=== PATIENT | male | born 1990 | race Caucasian/White ===

== ENCOUNTER 2016-10-07 07:33 | Observation (INO) | payer OTHER ==
--- NOTE | 2016-10-06 19:49 | OPPN ---
Date/Time of Note Date/Time of Note DATE: 10/06/16 TIME: 19:44 Anesthesia Eval and Record Evaluation Age 26 Sex male NPO: 8 hrs Preoperative diagnosis Left distal tibial pilon fracture Planned procedure ORIF Left distal tibial pilon fracture Surgery & Anesthesia Issues No known issue Meds Anticoagulation: No Beta Jose Luis within 24 hr: No Reason beta jose luis not given: Pt not on beta blockers Reported Medications Oxycodone HCl/Acetaminophen (Percocet 10-325 mg Tablet) 1 Each Tablet, 1 EACH PO Q4 Y for PAIN LEVEL 1-5, TAB 10/07/16 Allergies Coded Allergies: No Known Allergy (Unverified , 10/07/16) Labs/Studies Reviewed by anesthesiologist Pre-procedure Exam Airway and Mallampati score: Adequate mouth opening, Adequate thyromental dist , II Mallampati Teeth: Normal Lung: Normal ASA Physical Status ASA physical status: 1 Planned Anesthetic General/MAC: ETT Nerve block: Sciatic (left), Other (left saphenous block) Paulie Mcintyre M.D. Oct 06, 2016 19:49
[2016-10-07] VITALS (24 sets, daily range): BP systolic 107–144; BP diastolic 47–86; PULSE 64–106; RESP 16–39; Ht 170.2 cm; Wt 77.2 kg
[~2016-10-07] VITALS: Ht 170.2 cm; Wt 77.2 kg
[~2016-10-07 07:33] MED LIST: CEFAZOLIN 1 GM INJ ONE
[2016-10-07] MEDS ORDERED: OXYC-209 PO (07:52)
[2016-10-07] MEDS ORDERED: HYDROCODONE/APAP (10/325) TAB PO ONE (08:00)
[2016-10-07] MEDS ORDERED: BUPIVACAINE 0.5% (SDV) 30 ML INJ ONE (08:37)
[2016-10-07] MEDS ORDERED: POLYMYXIN/BACITRACIN 1L IRRIG ONE (08:37)
[2016-10-07] MEDS ORDERED: PROPOFOL 20 ML ONE (09:55)
[2016-10-07] MEDS ORDERED: ROPIVACAINE 0.5 % 30 ML VIAL ONE (09:55)
[2016-10-07] MEDS ORDERED: ROCURONIUM 50 MG INJ ONE (09:55)
[2016-10-07] MEDS ORDERED: ONDANSETRON 4 MG INJ ONE (09:55)
[2016-10-07] MEDS ORDERED: MIDAZOLAM 1 MG/ML 2 ML INJ ONE (09:55)
[2016-10-07] MEDS ORDERED: DEXAMETHASONE 4 MG/ML 1 ML INJ ONE (09:56)
[2016-10-07] MEDS ORDERED: CEFAZOLIN 1 GM INJ ONE (10:46)
[2016-10-07] MEDS ORDERED: FENTAnyl 50 MCG/ML VIAL ONE ×2 (11:48→13:02)
[2016-10-07] MEDS ORDERED: FENTAnyl 50 MCG/ML VIAL IV PRN ×3 (12:30)
[2016-10-07] MEDS ORDERED: HYDROmorphONE (0.2 MG/ML) 10ML SYG IV PRN ×3 (12:30)
[2016-10-07] MEDS ORDERED: LABETALOL HCL 20MG INJ IV PRN (12:30)
[2016-10-07] MEDS ORDERED: EPHEDrine SULFATE 50 MG/5 ML SYG IV PRN (12:30)
[2016-10-07] MEDS ORDERED: MIDAZOLAM 1 MG/ML 2 ML INJ IV PRN (12:30)
[2016-10-07] MEDS ORDERED: MEPERIDINE 25 MG INJ IV PRN (12:30)
[2016-10-07] MEDS ORDERED: ONDANSETRON 4 MG INJ IV PRN ×2 (12:30→15:00)
[2016-10-07] MEDS ORDERED: DIPHENHYDRAMINE 50 MG INJ IV PRN (12:30)
[2016-10-07] MEDS ORDERED: TRIMETHOBENZAMIDE 100 MG/ML VIAL IM PRN (12:30)
[2016-10-07] MEDS ORDERED: hydrALAzine 20 MG INJ IV PRN (12:30)
--- NOTE | 2016-10-07 13:47 | OPPN ---
Date/Time of Note Date/Time of Note DATE: 10/07/16 TIME: 13:40 Post-Anesthesia Notes Post-Anesthesia Note Activity: WNL Respiratory function: WNL Cardiovascular function: WNL Mental status: Baseline Pain reasonably controlled: Yes Hydration appropriate: Yes Nausea/Vomiting absent: Yes Paulie Mcintyre M.D. Oct 07, 2016 13:47
[2016-10-07] MEDS ORDERED: BACITRACIN/POLYMYXIN 28.35 GM OINT TOP ONE (14:15)
--- NOTE | 2016-10-07 14:44 | RADRPT ---
PROCEDURE: Intraoperative imaging of the left ankle with fluoroscopy. CLINICAL INDICATION: Left ankle pain. Fracture. Intraoperative. TECHNIQUE: 28 images of the left ankle were obtained in the operating room with an image intensifi er. No radiologist was in attendance. 2.0 minutes of fluoroscopy time was used. COMPARISON: No prior study is available for comparison. FINDINGS: Images demonstrate open reduction and internal fixation of the distal left tibia with a plate and mu ltiple screws. IMPRESSION: 1. Intraoperative imaging of the left ankle. RPTAT: QQ .Fredy Del Cid MD, MD Date Time Electronically viewed and signed by .Fredy Del Cid MD, MD on 10/07/2016 14:44 .R/
[2016-10-07] MEDS ORDERED: DIPHENHYDRAMINE 25 MG CAP PO PRN (15:00)
[2016-10-07] MEDS ORDERED: OXYCODONE/ACETAMINOPHEN (5/325) TAB PO PRN (15:00)
[2016-10-07] MEDS ORDERED: CEFAZOLIN 1 GM INJ IV SCH (15:00)
[2016-10-07] MEDS ORDERED: morphine 10 MG INJ IV PRN (15:00)
[2016-10-07] MEDS: morphine 1 MG/ML 30 ML (PCA) IV SCH (15:20)
[2016-10-07] MEDS: CEFAZOLIN 1 GM/50 ML (PMX) 50 ML IVPB SCH (21:57)
[2016-10-08] MEDS: CEFAZOLIN 1 GM/50 ML (PMX) 50 ML IVPB SCH ×2 (05:44→14:17)
[2016-10-08] MEDS: morphine 1 MG/ML 30 ML (PCA) IV SCH ×2 (06:33→12:48)
[2016-10-08 07:31] VITALS: BP 121/57; RESP 19
[2016-10-08 07:34] VITALS: BP 133/88; RESP 19
[2016-10-08] MEDS: OXYCODONE/ACETAMINOPHEN (5/325) TAB PO PRN ×2 (11:30→15:43)
[2016-10-08] MEDS ORDERED: HYDROmorphONE 1 MG/ML SYG IV PRN ×2 (14:30)
[2016-10-08] MEDS ORDERED: GABAPENTIN 100 MG CAP PO SCH ×2 (14:36→21:00)
[2016-10-08] MEDS ORDERED: RIVAROXABAN 10 MG TABLET PO SCH (17:55)
--- NOTE | 2016-10-08 18:10 | PN ---
Date/Time of Note Date/Time of Note DATE: 10/08/16 TIME: 18:06 Assessment/Plan Lines/Catheters IV Catheter Type (from Nrsg): Peripheral IV Assessment/Plan Assessment/Plan POD# 1 s/p Left distal tibial Pilon ORIF - NWB to the LLE - Xarelto - Percocet, Neurotin po - DC home today E Errol HINES Subjective 24 Hr Interval Summary Pain is much better controlled this evening. Was very nauseous last night, which has resolved. No f/c/n/v Constitutional: no complaints Feeding: advancing diet Pain Control: mild Exam/Review of Systems Vital Signs Vitals Vital Signs Date Time Temp Pulse Resp B/P Pulse Ox O2 Delivery O2 Flow Rate FiO2 10/08/16 09:00 20 10/08/16 07:34 97.0 81 133/88 99 10/07/16 23:55 Room Air 10/07/16 15:30 2.0 Intake and Output 10/07/16 10/07/16 10/08/16 15:00 23:00 07:00 Intake Total 2000 ml 1040 ml 450 ml Output Total 50 ml 850 ml Balance 1950 ml 1040 ml -400 ml Exam Constitutional: alert, oriented, well developed Musculoskeletal: other (LLE/splint intact, toes wiggle, cr brisk, silt m/l/d/p/ fdws) BARBARA PAULINO MD Oct 08, 2016 18:10
--- NOTE | 2016-10-08 18:11 | PDOCDIS ---
Discharge Instructions CONDITION Patient Condition: Good HOME CARE INSTRUCTIONS: Special Diet: regular diet ACTIVITY: Activity Restrictions: Do not Drive Do not operate Machinery Do not operate Power Tool Keep Limb Elevated No Weight Bearing BARBARA PAULINO MD Oct 08, 2016 18:11
--- NOTE | 2016-10-08 18:13 | DS ---
Date/Time of Note Date/Time of Note DATE: 10/08/16 TIME: 18:11 Discharge Summary Admission/Discharge Info Admit Date/Time Oct 07, 2016 at 14:34 Discharge Date/Time 10/08/16 Final Diagnosis Left distal tibia pilon fracture Patient Condition: Good Procedures ORIF Left Distal Tibial Pilon Fracture Hospital Course Patient was admitted post op for pain control. He has regained better control of his pain today. he is NVID to the exposed toes. NWB to the E Home Meds Reported Medications Oxycodone HCl/Acetaminophen (Percocet 10-325 mg Tablet) 1 Each Tablet, 1 EACH PO Q4 Y for PAIN LEVEL 1-5, TAB 10/07/16 Follow-up Plan [address] Aurelio PAULINO,AURELIO Patton MD Oct 08, 2016 18:13
--- NOTE | 2016-10-09 01:36 | OPR ---
DATE OF OPERATION: 10/07/2016 PREOPERATIVE DIAGNOSIS: Left distal tibial pilon fracture. POSTOPERATIVE DIAGNOSES: Left distal tibial pilon fracture. OPERATION PERFORMED: Open reduction internal fixation of left distal tibial pilon fracture. SURGEON: Aurelio Norton MD NON DESTRUCTIVE TESTING SUPERVISOR: PRIYA Boateng. ANESTHESIA: General with regional block anesthesia. ANESTHESIOLOGIST: Dr. Paulie Mcintyre. TOURNIQUET TIME: 128 minutes at 250 mmHg. IMPLANTS: Arthrex distal tibial anterolateral tibial plate. PATHOLOGY: None. INDICATIONS: The patient is a young man who sustained a distal tibial pilon fracture falling off a curb and twisting his ankle. A CT scan showed mild displacement of an pauci-articular distal tibial pilon fracture. Given the displacement, the patient was indicated for surgery. RISK NOTE: The patient was explained the risks and benefits of the surgery in the patient's poarch language including, but not limited to infection, bleeding , loss of limb, loss of life, DVT, need for future surgery, risk of injury to blood vessels, nerves, ligaments or tendons. Patient acknowledges these risks and signed the surgical consent form. OPERATIVE NOTE: The patient had the correct operative extremity marked in the preoperative holding area, confirmed with both marking pen and with consent and with patient. Patient was then brought back in the operative theater, placed supine on operating table, given preoperative regional anesthesia, preoperative antibiotics. The patient had a nonsterile tourniquet placed on the operative extremity and patient was then prepped and draped in the normal sterile fashion. A timeout was taken and all parties in the room agreed it was correct patient, correct extremity and correct procedure. Tourniquet was brought up to 250 mmHg. Incision was made in the typical anterolateral approach with care to avoid any injury to the neurovascular structures. The incision was brought down to the distal tibia and the fracture was then reduced and 2 lag screws were placed while the fracture was held in position from the posteromedially anterolateral position. In typical lag type compression an anterolateral Arthrex plate was then placed over the distal tibia with screw placed proximally followed by multiple locking screws placed distally. The fracture was shown to be well reduced in the AP, lateral and oblique positions with excellent fixation and the articular surface well reduced. After the patient was shown to be adequately reduced in length, alignment and rotation and excellent articular alignment was achieved, the wounds were irrigated thoroughly and closed with 0 Vicryl, followed by 2-0 Vicryl followed by 3-0 Monocryl and 3-0 nylon in vertical mattress fashion. The wounds were then dressed with Xeroform triple antibiotic ointment, 4 x 4's and then 5 ABDs, Webril, and placed into a well-padded short leg splint. The patient was taken to PACU in stable condition. All sponge and needle counts were correct. The patient will remain nonweightbearing for the next 6 to 8 weeks. Dictated By: AURELIO FERNANDES/NTS Conf#: [id number] DID#: [id number]
== END 2016-10-08 19:00 | disposition home or self-care (01) ==
LOC: SDS 07:33 → MS1 14:34 → SDS 14:34 → MS1 16:35 → UNDOFXSDCSVC 16:35
PROVIDERS: ADMIT Orthopaedic Surgery; ATTEND Orthopaedic Surgery
DX: S82.872A Displaced pilon fracture of left tibia, initial encounter for closed fracture (principal); W10.1XXA Fall (on)(from) sidewalk curb, initial encounter; Y93.9 Activity, unspecified; Y99.9 Unspecified external cause status; Y92.9 Unspecified place or not applicable
CPT/HCPCS: 27827; 73590; 82306; 96365; 96374; 96375; 96376; 97163; J0690; J1100; J2175; J2250; J2270; J2405; J2795; J3010; Z7500; Z7512; Z7610; G0378